=== PATIENT | male | born 1945 | race American Indian/Alaskan Native ===

== ENCOUNTER 2018-05-04 10:29 | Outpatient (CLI) | payer MEDICARE ==
--- NOTE | 2018-05-04 13:39 | Magnetic Resonance Report ---
MRI OF THE THORACIC SPINE: HISTORY: Unspecified cord compression. FINDINGS: Multiplanar and multisequence MRI of the thoracic spine is submitted. Visualized vertebral bodies and intervertebral discs are of normal height, alignment and signal. There is no evidence for disc bulge, protrusion, or herniation. Visualized neural foramen are grossly patent. Visualized portions of the spinal cord are symmetric without signal abnormality. IMPRESSION: MRI of thoracic spine within normal limits.
--- NOTE | 2018-05-04 13:41 | Magnetic Resonance Report ---
MRI LUMBAR SPINE WITHOUT CONTRAST HISTORY: Unspecified cord compression. TECHNIQUE: axial T1, T2. sagittal T1,T2, STIR. COMPARISON: none. FINDINGS: The conus terminates at L1. No signal abnormality or mass. The cauda equina is within normal limits. No central canal stenosis. There is normal height and alignment of the lumbar vertebral bodies. Normal bone marrow signal. Mild disc desiccation without narrowing is noted throughout the lumbar region. No evidence for bulging disc, large herniation or nerve impingement. The facet joints are within normal limits. No hypertrophic changes. The paraspinal soft tissues are within normal limits. IMPRESSION: Minimal lumbar spondylosis as described. No acute process or evidence for cord compression.
--- NOTE | 2018-05-05 06:17 | Magnetic Resonance Report ---
FINAL REPORT PROCEDURE: MR CERVICAL SPINE WO CON TECHNIQUE: Magnetic resonance imaging of the cervical spine was performed using standard pulse sequences without contrast material. HISTORY: Unspecified cord compression COMPARISON: No prior studies are available for comparison. FINDINGS: There is no fracture. C1-2: No significant abnormality. C2-3: There is significant loss of disc height without significant disc bulge. There is no spinal or foraminal stenosis.. C3-4: No significant abnormality . C4-5: No significant abnormality . C5-6: There is grade 1 anterior spondylolisthesis and degenerative loss of disc height. There is broad-based disc bulging causing moderate spinal stenosis. There is severe bilateral foraminal stenosis.. C6-7: There is moderate loss of disc height and mild disc bulging. There is mild spinal stenosis.. C7-T1: There is mild disc bulging. There is no spinal or foraminal stenosis.. Other: There is no epidural or prevertebral soft tissue abnormality.. IMPRESSION: There are degenerative changes as described detail above. There is no fracture. There is no disc herniation or cord compression.
== END 2018-05-04 10:30 | disposition home or self-care (01) ==
LOC: MRI 10:29
PROVIDERS: ATTEND Internal Medicine Hematology & Oncology
DX: M50.23 Other cervical disc displacement, cervicothoracic region (principal); M48.02 Spinal stenosis, cervical region; M47.896 Other spondylosis, lumbar region
CPT/HCPCS: 72141; 72146; 72148